=== PATIENT | female | born 1985 | race Caucasian/White ===

== ENCOUNTER 2019-11-26 16:34 | Emergency (ER) | payer OTHER, SELFPAY ==
--- NOTE | ~2019-11-26 | XR_ITS ---
EXAMINATION: XR finger 5th RT min 2V EXAM DATE: 11/26/2019 16:52 INDICATION: Initial encounter following injury, with pain of the right 5th finger. TECHNIQUE: Right 5th finger frontal, lateral and oblique projections obtained and reviewed. There is no prior study for comparison. FINDINGS: There is acute closed posttraumatic nondisplaced transverse fracture through the head of th e right 5th middle phalanx, unusual location for a transverse fracture but no other likely explanatio n for this lucency. This does not appear to extend into the articular surface of the distal interphal angeal joints. This finding has been indicated, marked on the examination for review, clinical correl ation. No other acute findings. IMPRESSION: Right 5th middle phalangeal head fracture. Reviewed, dictated and finalized at location A.
[2019-11-26 16:43] VITALS: BP 139/85; PULSE 83; RESP 20; TEMP 36.7; O2SAT 100
--- NOTE | 2019-11-26 17:00 | ED.UPPEXIN ---
HPI - Extremity Injury (Upper) General Chief Complaint: Extremity Injury, Upper Stated Complaint: INJURED FINGER Source: patient and RN notes reviewed Limitations: no limitations History of Present Illness HPI narrative: The right-handed patient, previously mostly healthy, presents with right finger pain. Patient states her small right finger was on a metal door yesterday. She complains of mild to moderate swelling of the distal tip, with some proximal bruising. No bleeding, deformity; symptoms are mild, worse with movement, better with elevation or rest. Related Data Home Medications Medication Instructions Recorded Confirmed Control Pills 04/10/19 Allergies Allergy/AdvReac Type Severity Reaction Status Date / Time Penicillins Allergy Unknown Swelling Verified 04/10/19 13:21 of Lip/Tongue/Throat Review of Systems Review of Systems: Narrative: General/Constitutional: No weight loss,fever Eyes: N0: Redness,discharge Ears/Nose/Throat: No: Epistaxis,ear discharge Respiratory: Denies: Hemoptysis Gastrointestinal: No Vomiting, Bleeding-rectal Skin: No Lumps, eruption Neurologic: No Focal Weakness,Sz Hematologic: Denies: Petechiae/Purpura Psychiatric: No: Suicida ideationl All Other Systems: Reviewed and Negative PMFSH Past Medical History Medical History (Updated 11/26/19 @ 17:18 by El Meyers MD) MRSA (methicillin resistant Staphylococcus aureus) Surgical History Surgical History (Updated 04/10/19 @ 14:05 by Kelton Weiner) No significant past surgical history Family History Family History (Updated 10/15/15 @ 23:19 by DOCTOR UNKNOWN) Father Hypertension Asthma Family history of diabetes mellitus in first degree relative Family history of heart disease in male family member before age 55 Mother Family history of diabetes mellitus in first degree relative Other Diabetes mellitus Family history of arthritis Family history of cardiovascular disease Social History Social History Smoking end date: 03/19/08 Alcohol intake: current Comments At time of signature, agree with nursing past medical, surgical, social and family history. There is no relevant family history pertinent to the presenting complaint Exam Narrative: Exam Narrative: General Appearance: Well appearing, Well nourished, No distress EYE: PERRLA, EOMI, Conjunctiva clear Mouth/Throat: Normal appearing, Supple Respiratory: Airway patent, No respiratory distress MS-finger: Normal strength (mostly intact, limited flexion/extension by pain), Tenderness (distally with mild decreased ROM), Swelling (distally ), Other (no anterior drawer, no collateral laxity, Skin: Warm, Dry, Normal color Neurological: A&O x3, Speech clear, CN II-XII intact Psychiatric: Normal mood, Normal affect Course Course Emergency Course: Films visualized, interpreted by radiologist, agree, normal see report Vital Signs Vital signs: Vital Signs Temperature 98.1 F 11/26/19 16:43 Pulse Rate 83 11/26/19 16:43 Respiratory Rate 11/26/19 16:43 Blood Pressure 139/85 11/26/19 16:43 Pulse Oximetry 100 11/26/19 16:43 Temperature 98.1 F 11/26/19 16:43 Pulse Rate 83 11/26/19 16:43 Respiratory Rate 11/26/19 16:43 Blood Pressure 139/85 11/26/19 16:43 Pulse Oximetry 100 11/26/19 16:43 Discharge Plan Discharge Clinical Impression: Fracture of finger of right hand Qualifiers: Encounter type: initial encounter Finger: little finger Fracture type: closed Phalanx: middle Fracture alignment: nondisplaced Qualified Code(s): S62.656A - Nondisplaced fracture of middle phalanx of right little finger, initial encounter for closed fracture Patient Disposition: Home, Self-Care Condition: Improved Prescriptions: New tramadol 50 mg tablet 50 mg PO Q6H PRN (Reason: pain) Qty: 15 RF: 1 No Action Control Pills
== END 2019-11-26 17:26 | disposition home or self-care (01) ==
PROVIDERS: Emergency Provider Emergency Medicine; PCP Internal Medicine Gastroenterology
DX: S62.656A Nondisplaced fracture of middle phalanx of right little finger, initial encounter for closed fracture (principal); X58.XXXA Exposure to other specified factors, initial encounter
CPT/HCPCS: 29130; 73140; 99214; G0463

== ENCOUNTER 2020-09-02 15:08 | Emergency (ER) | payer OTHER, SELFPAY ==
[2020-09-02 15:25] VITALS: BP 148/87; PULSE 94; RESP 12; TEMP 36.7; O2SAT 99
[2020-09-02 15:26] VITALS: BP 148/87; PULSE 94; RESP 12; TEMP 36.7; O2SAT 99
--- NOTE | 2020-09-02 15:29 | ED.URI ---
HPI - URI/Sore Throat General Chief Complaint: Upper Respiratory Infection Stated Complaint: SOB/cough/congestion/sweats/swollen glands Time Seen by Provider: 09/02/20 15:29 Source: patient and RN notes reviewed Mode of arrival: ambulatory Limitations: no limitations History of Present Illness HPI Narrative: 35-year-old female presents to the [facility] after being exposed by Covid with symptoms of cough, shortness of breath, fatigue. States that she was possibly exposed to Covid on Sunday, 3 to 4 days ago. States that she has been sleeping all day and wants to be evaluated. Denies fevers. No treatment prior to arrival. Related Data Allergies Allergy/AdvReac Type Severity Reaction Status Date / Time Penicillins Allergy Unknown Swelling Verified 09/02/20 15:24 of Lip/Tongue/Throat Review of Systems Review of Systems: All systems reviewed & are unremarkable except as noted in HPI and below Constitutional: Constitutional: Reports as per HPI, Reports chills, Reports fatigue and Denies fever(s) Eyes: Eyes: Reports no additional eye complaints ENT: Reports as per HPI, Denies dizziness, Reports nasal congestion and Reports sore throat Cardiovascular: Cardiovascular: Reports no additional cardiovascular complaints and Denies chest pain Respiratory: Respiratory: Reports as per HPI, Reports chest congestion, Reports cough and Reports dyspnea Gastrointestinal: Gastrointestinal: Reports no additional gastrointestinal complaints, Denies abdominal pain, Denies nausea and Denies vomiting Musculoskeletal: Musculoskeletal: Reports as per HPI, Denies back pain, Reports myalgias and Denies muscle cramps Integumentary/Breasts: Skin/Breast: Reports system reviewed and no additional complaints, except as docu, Denies erythema and Denies rash Neurologic: Reports as per HPI, Denies vertigo, Denies dizziness, Denies syncope, Reports headache(s), Denies focal weakness and Denies numbness Psychiatric: Psychiatric: Reports no additional psychiatric complaints Allergic/Immunologic: Allergic/Immunologic: Reports no additional allergic/immunologic complaints, Denies lip swelling, Denies throat swelling, Denies tongue swelling and Denies wheezing PMFSH Past Medical History Medical History (Updated 09/02/20 @ 15:40 by Celia Chauhan) MRSA (methicillin resistant Staphylococcus aureus) Surgical History Surgical History No significant past surgical history Family History Family History Father Hypertension Asthma Family history of diabetes mellitus in first degree relative Family history of heart disease in male family member before age 55 Mother Family history of diabetes mellitus in first degree relative Other Diabetes mellitus Family history of arthritis Family history of cardiovascular disease Social History Social History Smoking end date: 03/19/08 Alcohol intake: current Comments At the time of my signature, I reviewed and agree with the nursing past medical, surgical, social, and family history. There is no relevant family history pertinent to the patient complaint. Exam Const: General: healthy appearing, no acute distress and alert Nutritional Appearance: well nourished Orientation/consciousness: patient oriented x3 Limitations: no limitations HENMT: Head: normal to inspection and normocephalic Ears: hearing grossly normal bilaterally, external ears normal and TM's normal bilaterally General nose exam: Normal external nose present, Abnormal mucous membranes and turbinates present boggy and Nasal discharge present clear Face and sinus: normal facial exam and sinuses nontender Mouth: Yes Normal oral and palatal mucosa present, Yes lip normal and Yes tongue normal Throat: posterior oropharynx normal, tonsils normal and uvula midline Eyes: Conjunctivae: conj
[2020-09-03 18:47] LABS: SARS-CoV-2 RNA PCR Negative
== END 2020-09-02 15:48 | disposition home or self-care (01) ==
PROVIDERS: Emergency Provider Nurse Practitioner; PCP Internal Medicine Gastroenterology
DX: J06.9 Acute upper respiratory infection, unspecified (principal); Z20.822 Contact with and (suspected) exposure to COVID-19; Z86.14 Personal history of Methicillin resistant Staphylococcus aureus infection
CPT/HCPCS: 99213; C9803; G0463; U0003; U0005

== ENCOUNTER 2021-01-04 17:19 | Emergency (ER) | payer OTHER, SELFPAY ==
--- NOTE | 2021-01-04 17:24 | ED.URI ---
HPI - URI/Sore Throat General Chief Complaint: Upper Respiratory Infection Stated Complaint: stuffy nose/runny nose/ear pain/peck/sore throat Time Seen by Provider: 01/04/21 17:25 Source: patient and RN notes reviewed History of Present Illness HPI Narrative: Patient is a 35-year-old female who presents the urgent care with complaints of runny nose, congestion, bilateral ear pain, sore and headache. Patient states that her symptoms started on Sunday. She has been using Sudafed and Benadryl for her symptoms. States that her whole family had to be tested last Sunday for Covid and everyone was negative at that time. Patient denies any cough or fever. Patient has not been tested for Covid since her symptoms started. No other acute complaints. No acute distress noted. Patient aware of the plan of care. Some parts of this dictation were generated by voice recognition software and may contain typographical and/or grammatical inaccuracies. Related Data Allergies Allergy/AdvReac Type Severity Reaction Status Date / Time Penicillins Allergy Rash Verified 01/04/21 17:37 Review of Systems Review of Systems: CONSTITUTIONAL: Denies fever, chills, or sweats. EYES: Denies visual changes, redness, or discharge. ENT: Reports of rhinorrhea, nasal congestion, sore throat, bilateral otalgia CARDIOVASCULAR: Denies chest pain, palpitations, or edema. RESPIRATORY: Denies cough or dyspnea. GASTROINTESTINAL: Denies abdominal pain, nausea, vomiting, or diarrhea. GENITOURINARY: Denies dysuria or hematuria. SKIN: Denies rash or itching. MUSCULOSKELETAL: Denies back pain, joint pain, or myalgia. NEUROLOGIC: Reports of headache All other systems reviewed are negative, except as documented in HPI. PMFSH Comments At the time of my signature, I reviewed and agree with the nursing past medical, surgical, social, and family history. There is no relevant family history pertinent to the patient complaint. Exam Narrative: GENERAL: This is a well-nourished, well-developed patient, in no apparent distress. HEAD: normocephalic, atraumatic. EYES: PERRL. Sclera clear/white. Vision is grossly intact. EARS: External ears normal, auditory canals clear and without drainage, mild fluid noted bilateral TMs without otitis, TMs normal without perforation. Hearing grossly intact. NOSE: External nose normal with no obvious nasal discharge, nares without redness, clear to yellow rhinorrhea. THROAT: Mucous membranes moist, posterior pharynx clear. Moderate postnasal drainage NECK: Neck supple, non-tender without lymphadenopathy CARDIOVASCULAR: Regular rate and rhythm without murmurs, gallops, or rubs. RESPIRATORY: Clear to auscultation. Breath sounds equal bilaterally. No wheezes, rales, or rhonchi. SKIN: warm, intact with no suspicious lesions or rash, good texture and turgor. NEURO: awake, alert, and oriented to person, place and time. There were no obvious focal neurologic abnormalities. EXTREMITIES: No clubbing, cyanosis, or edema. Course Vital Signs Vital signs: Vital Signs Temperature 97.1 F L 01/04/21 17:28 Pulse Rate 91 01/04/21 17:28 Respiratory Rate 16 01/04/21 17:28 Blood Pressure 126/91 H 01/04/21 17:28 Pulse Oximetry 100 01/04/21 17:28 Temperature 97.1 F L 01/04/21 17:28 Pulse Rate 91 01/04/21 17:28 Respiratory Rate 16 01/04/21 17:28 Blood Pressure 126/91 H 01/04/21 17:28 Pulse Oximetry 100 01/04/21 17:28 Reviewed-patient is informed that they may have pre-hypertension or hypertension based on a blood pressure reading in the department. I recommend the patient call the primary care provider listed on their discharge instructions or a physician of their choice this week to arrange follow-up for further evaluation of possible pre-hypertension or hypertension. MDM - URI/Sore Throat MDM Narrative Medical decision making narrative: Reviewed lab results with the patient. She is aware that her rapid strep and rapid Covid test were bot
[2021-01-04 17:28] VITALS: BP 126/91; PULSE 91; RESP 16; TEMP 36.2; O2SAT 100
== END 2021-01-04 18:02 | disposition home or self-care (01) ==
PROVIDERS: Emergency Provider Nurse Practitioner Family; PCP Internal Medicine Gastroenterology
DX: J06.9 Acute upper respiratory infection, unspecified (principal); Z20.822 Contact with and (suspected) exposure to COVID-19
CPT/HCPCS: 87081; 87426; 87880; 99213; C9803; G0463

== ENCOUNTER 2021-01-19 17:17 | Emergency (ER) | payer OTHER, SELFPAY ==
[2021-01-19 18:13] VITALS: BP 128/86; PULSE 87; RESP 16; TEMP 36.3; O2SAT 100
[2021-01-19 20:27] VITALS: BP 145/97; PULSE 90; RESP 18; TEMP 36.5; O2SAT 100
[2021-01-19 21:40] LABS: Basophils Percent Auto 0.3 % (0.2-1.2); Eosinophils Absolute Auto 0.2 K/mm3 (0-0.3); Eosinophils Percent Auto 3.3 % (0-4.4); Hematocrit 42.7 % (37.0-47.0); Hemoglobin 14.2 g/dL (12.0-15.0); Immature Granulocyte Absolute 0.02 K/mm3 (0.00-0.031); Immature Granulocyte Percent A 0.3 % (0-0.5); Lymphocytes Absolute Auto 2.46 K/mm3 (0.9-3.2); Lymphocytes Percent Auto 35.4 % (18.3-44.2); Mean Corpuscular HGB Conc 33.3 g/dl (32-36); Mean Corpuscular Hemoglobin 29.5 pg (26-34); Mean Corpuscular Volume 88.8 fl (80-100); Mean Platelet Volume 11.3 fl (7.4-10.4); Monocytes Absolute Auto 0.5 K/mm3 (0.1-0.6); Monocytes Percent Auto 6.8 % (2.6-8.5); Neutrophils Absolute Auto 3.7 K/mm3 (1.3-6.7); Neutrophils Percent Auto 53.9 % (45.5-73.1); Platelet Count Result 191 k/mm3 (150-375); Red Blood Count 4.81 M/mm3 (4.2-5.4); Red Cell Distribution Width 12.8 % (11.5-14.5); White Blood Count 6.9 K/mm3 (4.5-10.0)
[2021-01-19 21:41] VITALS: BP 121/75
[2021-01-19 21:45] VITALS: BP 112/72
[2021-01-19 21:48] LABS: INR 0.9; Prothrombin Time 11.7 Seconds (11.1-14.7)
[2021-01-19 21:49] LABS: Partial Thromboplastin Time 29.7 SECONDS (22.3-36.8)
[2021-01-19 21:51] VITALS: BP 123/94
--- NOTE | 2021-01-19 22:05 | ED.GIBLEED ---
HPI - GI Bleed General Chief complaint: GI Bleed Stated complaint: blood in stools Time Seen by Provider: 01/19/21 20:58 Source: patient Mode of arrival: ambulatory Limitations: no limitations History of Present Illness HPI Narrative: 35-year-old female woke up this morning had a soft stool and also noted some bright red blood with the stool not mixed in. She thought maybe she was starting her period but then this happened a second time prior to arrival. No hematemesis, no melena no hematochezia no previous history of same. No abdominal pain, no rectal pain, no syncope, no palpitations. No history of hemorrhoids per patient patient arrives normal blood pressure 128/86 with a pulse 87. MD complaint: blood on toilet paper Related Data Home Medications Medication Instructions Recorded Confirmed No Home Medications 01/19/21 01/19/21 Allergies Allergy/AdvReac Type Severity Reaction Status Date / Time Penicillins Allergy Rash Verified 01/19/21 20:34 Review of Systems Review of Systems: CONSTITUTIONAL: no fever, no weight loss, no confusion EYES: no vision changes, no eye pain ENT: no rhinorrhea, no sore throat, no difficulty swallowing CARDIOVASCULAR: no chest pain, no leg edema, no palpitations RESPIRATORY: no cough, no shortness of breath, no hemoptysis GASTROINTESTINAL: mild abdominal cramping, no nausea, no vomiting, no diarrhea, BRBPR GENITOURINARY: no flank pain, no dysuria, no hematuria SKIN: no rash, no jaundice MUSCULOSKELETAL: mild lower back pain, no trauma. NEUROLOGIC: No headache, no dizziness, no focal weakness PSYCHIATRIC: No hallucinations, no suicidal ideation Exam Narrative: General: alert, afebrile, answering all questions appropriately Head: normocephalic, atraumatic Eyes: EOMI bilaterally, anicteric, no injection ENT: moist mucous membranes, oropharynx patent, no rhinorrhea Neck: supple, trachea midline, no JVD Chest: equal chest rise bilaterally, no chest wall trauma noted CV: regular rate, no AMY B, calf size equal bilaterally Abd: soft, non-distended, non-tender, no rebound, no gaurding; guaiac negative scant stool. Noted external hemorrhoids nonthrombosed. EXT: no deformity noted, moving all extremities equally Skin: warm, dry, no pallor Neuro: alert, oriented x 3; CN 2-12 grossly intact, no dysarthria Psych: affect appropriate, thought content normal Course Course Emergency Course: Patient was guaiac-negative from below, some external hemorrhoids nonthrombosed. Hemoglobin is normal, no evidence of anemia or tachycardia or lower blood pressure. Coags are normal. Chemistry is normal BUN is not elevated renal function is normal. Unlikely to be significant lower GI bleed needing immediate evaluation. Most likely external or internal hemorrhoids. Spoke with patient regarding results. Patient will return immediately if increased bleeding, syncope, palpitations, inability to tolerate fluids or medications. She will also follow-up with her primary doctor this week for follow-up and possible GI consult. Reevaluation(s) Reevaluation #1: Abdomen soft, no GI bleeding in the ED. Guaiac-negative from below scant stool. Hemoglobin 14.3 afebrile. Tolerating p.o. Date: 01/19/21 Time: 22:24 Vital Signs Vital signs: Vital Signs Temperature 36.3 C L 01/19/21 18:13 Pulse Rate 87 01/19/21 18:13 Respiratory Rate 16 01/19/21 18:13 Blood Pressure 128/86 01/19/21 18:13 Pulse Oximetry 100 01/19/21 18:13 Temperature 36.9 C 01/19/21 22:40 Pulse Rate 81 01/19/21 22:40 Respiratory Rate 16 01/19/21 22:40 Blood Pressure 121/80 01/19/21 22:40 Pulse Oximetry 100 01/19/21 22:40 MDM - GI Bleed MDM Narrative Medical decision making narrative: Patient with 2 episodes of bright red blood per rectum today also started her period today. Patient is guaiac-negative from below palp, vitals are 128/86, pulse of 87. Differential diagnosis: Rectal bleed, lower GI bleed, diverticulitis, AV
[2021-01-19 22:17] LABS: Alanine Aminotransferase 33 U/L (4-35); Albumin Level 4.4 g/dL (3.5-5.1); Alkaline Phosphatase 72 U/L (38-126); Anion Gap 8 mmol/L (8-16); Aspartate Amino Transferase 34 U/L (14-36); Bilirubin,Total 0.4 mg/dL (0.2-1.3); Blood Urea Nitrogen 12 mg/dL (7-17); Calcium 9.7 mg/dL (8.4-10.2); Carbon Dioxide 26 mmol/L (22-30); Chloride 105 mmol/L (98-107); Estimated CRCL calculation 100 ml/min; Estimated Glomerular Filt Rate > 60; Glucose 91 mg/dL (65-110); Potassium 4.3 mmol/L (3.4-5.0); Sodium 139 mmol/L (137-145)
[2021-01-19 22:40] VITALS: BP 121/80; PULSE 81; RESP 16; TEMP 36.9; O2SAT 100
== END 2021-01-19 22:45 | disposition home or self-care (01) ==
PROVIDERS: Family Medicine; Emergency Provider Emergency Medicine; PCP Internal Medicine Gastroenterology
DX: K62.5 Hemorrhage of anus and rectum (principal)
CPT/HCPCS: 36415; 80053; 85025; 85610; 85730; 86850; 86900; 86901; 99283

== ENCOUNTER 2021-07-28 16:22 | Emergency (ER) | payer OTHER, SELFPAY ==
--- NOTE | ~2021-07-28 | CT_ITS ---
EXAMINATION: CT thoracic lumbar wo con DATE: 07/28/2021 20:05 INDICATION: Back injury and tenderness. TECHNIQUE: Computed tomography (CT) of the thoracic and lumbar spine was performed without intravenou s contrast. Automated exposure control and iterative reconstruction technique were employed. The dose -length product was 1800.12 mGy-cm. COMPARISON: None FINDINGS: CT THORACIC SPINE: There is a small sliding hiatal hernia. There are 2 stones in right kidney measuri ng up to 2 mm. There is 4 degrees dextrocurvature of thoracic spine. There is mild chronic anterior w edging of T7 vertebral body. There is mildly decreased disc height from T6-T7 through T8-T9. There ar e endplate osteophytes at multiple levels. There is multilevel mild facet joint osteoarthritis. No ne ural foraminal stenosis or central canal stenosis. CT LUMBAR SPINE: There is 6 degrees levocurvature of lumbar spine. Vertebral body heights and interve rtebral disc heights are normal. There is multilevel mild facet joint osteoarthritis. No neural reed inal stenosis or central canal stenosis. 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 IMPRESSION: 1. No fracture. 2. Mild spondylosis. 3. Small sliding hiatal hernia. Reviewed, dictated and finalized at location A.
--- NOTE | ~2021-07-28 | XR_ITS ---
EXAMINATION: XR hip LT min 3V w AP pelvis DATE: 07/28/2021 19:51 INDICATION: Left hip pain. TECHNIQUE: An anteroposterior pelvis and 3 views of left hip were obtained. COMPARISON: None. FINDINGS: There is widening of pubic symphysis. No fracture. The hip joint spaces are normal. IMPRESSION: 1. Widening of pubic symphysis. Consider pelvis CT if there is clinical concern for fractures of the pelvic ring. Reviewed, dictated and finalized at location A.
--- NOTE | ~2021-07-28 | CT_ITS ---
EXAMINATION: CT cervical spine wo con DATE: 07/28/2021 20:04 INDICATION: Head injury. TECHNIQUE: Computed tomography (CT) of the cervical spine was performed without intravenous contrast. Automated exposure control and iterative reconstruction technique were employed. The dose-length pro duct was 547.62 mGy-cm. COMPARISON: None FINDINGS: There is 8 degrees levocurvature of cervical spine. There is mild kyphosis of cervical spin e. Vertebral body heights and intervertebral disc heights are normal. There is mild facet joint osteo arthritis on the left at C2-C3 and bilaterally at C7-T1. No neural foraminal stenosis or central katia l stenosis. IMPRESSION: 1. No fracture. Reviewed, dictated and finalized at location A. IMPRESSION: 1. No fracture.
--- NOTE | ~2021-07-28 | CT_ITS ---
EXAMINATION: CT pelvis wo con DATE: 07/28/2021 20:47 INDICATION: Left hip pain. Widening of the pubic symphysis. TECHNIQUE: Computed tomography (CT) of the pelvis was performed without intravenous contrast. Automat ed exposure control and iterative reconstruction technique were employed. The dose-length product was 813.06 mGy-cm. COMPARISON: Pelvis and left hip radiographs 07/28/2021 FINDINGS: There is widening of pubic symphysis. No fracture. There is severe osteoarthritis of the sa croiliac joints. There is mild osteoarthritis of the hips characterized by tiny osteophytes. IMPRESSION: 1. No fracture. 2. Widening of the pubic symphysis, likely chronic given the severe osteoarthritis of the sacroiliac joints. 3. Mild osteoarthritis of the hips. Reviewed, dictated and finalized at location A. IMPRESSION: 1. No fracture. 2. Widening of the pubic symphysis, likely chronic given the severe osteoarthri tis of the sacroiliac joints. 3. Mild osteoarthritis of the hips.
--- NOTE | ~2021-07-28 | CT_ITS ---
EXAMINATION: CT brain wo con DATE: 07/28/2021 20:04 INDICATION: Head injury. TECHNIQUE: Computed tomography (CT) of the head was performed without intravenous contrast. The mA wa s adjusted according to patient size. Iterative reconstruction technique was employed. The dose-lengt h product was 529.67 mGy-cm. COMPARISON: None FINDINGS: There is no intracranial hemorrhage, acute infarction, or abnormal intracranial mass lesion . The ventricles are normal in size. The paranasal sinuses are clear. The orbits are normal. The mast oid air cells are normal. IMPRESSION: 1. Normal brain. Reviewed, dictated and finalized at location A. IMPRESSION: 1. Normal brain.
--- NOTE | ~2021-07-28 | XR_ITS ---
EXAMINATION: XR shoulder RT min 2V DATE: 07/28/2021 19:51 INDICATION: Right shoulder pain. Fall. TECHNIQUE: 4 views of right shoulder were obtained. COMPARISON: None. FINDINGS: Bone alignment is normal. No fracture. Joint spaces are well maintained. IMPRESSION: 1. Normal right shoulder. Reviewed, dictated and finalized at location A. IMPRESSION: 1. Normal right shoulder.
[2021-07-28 16:24] VITALS: BP 132/87; PULSE 107; RESP 18; TEMP 36.4; O2SAT 98
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
[2021-07-28] MEDS: KETOROLAC (*BKC) 60 MG/2 ML VIAL IM (19:33)
[2021-07-28 21:07] VITALS: PULSE 74; RESP 18; O2SAT 99
== END 2021-07-28 21:08 | disposition home or self-care (01) ==
PROVIDERS: Emergency Provider Emergency Medicine; PCP Internal Medicine Gastroenterology
DX: M54.50 Low back pain, unspecified (principal); M25.511 Pain in right shoulder; M25.552 Pain in left hip; R51.9 Headache, unspecified; Y04.2XXA Assault by strike against or bumped into by another person, initial encounter; Y92.511 Restaurant or cafe as the place of occurrence of the external cause; Y99.0 Civilian activity done for income or pay
CPT/HCPCS: 70450; 72125; 72128; 72131; 72192; 73030; 73502; 81025; 96372; 99284; J1885

== ENCOUNTER 2021-09-29 14:17 | Emergency (ER) | payer OTHER, SELFPAY ==
[2021-09-29 14:27] VITALS: BP 123/85; PULSE 82; RESP 20; TEMP 37; O2SAT 99
--- NOTE | 2021-09-29 14:45 | ED.NAVMDI ---
HPI - Nausea/Vomiting/Diarrhea General Chief complaint: Nausea/Vomiting/Diarrhea Stated complaint: nausea,vomitting,dizzy,headache Time Seen by Provider: 09/29/21 14:45 Source: patient Mode of arrival: ambulatory Limitations: no limitations History of Present Illness HPI Narrative: 36-year-old female presents with complaint of acid attacks and nausea vomiting diarrhea for the past 2 to 3 days. Afebrile. Also reports intermittent headaches and fatigue. States she has a history of bad GERD. Is currently not taking any medications to treat her symptoms. Reports that acid reflux for started after eating a buffalo tuna. States she had acid in her chest up into her throat that caused her to become nauseous and started vomiting. Denies abdominal pain. States that she tried to go back to work today and still felt fatigued. No URI symptoms. All systems reviewed and negative except as noted above Related Data Allergies Allergy/AdvReac Type Severity Reaction Status Date / Time Penicillins Allergy Unknown Swelling Verified 09/29/21 14:34 of Lip/Tongue/Throat ranitidine Allergy Hives Verified 09/29/21 15:33 Review of Systems Review of Systems: CONSTITUTIONAL: Denies fever, chills, or sweats. Reports fatigue. EYES: Denies visual changes, redness, or discharge. ENT: Denies rhinorrhea, congestion, sore throat, or otalgia. CARDIOVASCULAR: Denies chest pain, palpitations, or edema. RESPIRATORY: Denies cough or dyspnea. GASTROINTESTINAL: Denies abdominal pain. Reports nausea, vomiting, or diarrhea. GENITOURINARY: Denies dysuria or hematuria. SKIN: Denies rash or itching. MUSCULOSKELETAL: Denies back pain, joint pain, or myalgia. NEUROLOGIC: Reports headache. Denies numbness, or weakness. PSYCHIATRIC: Denies anxiety or depression. All other systems reviewed are negative, except as documented in HPI. [facility] Past Medical History Medical History MRSA (methicillin resistant Staphylococcus aureus) Surgical History Surgical History No significant past surgical history Family History Family History Father Hypertension Asthma Family history of diabetes mellitus in first degree relative Family history of heart disease in male family member before age 55 Mother Family history of diabetes mellitus in first degree relative Other Diabetes mellitus Family history of arthritis Family history of cardiovascular disease Social History Social History Smoking end date: 03/19/08 Alcohol intake: current Comments At time of signature, agree with nursing past medical, surgical, social and family history. There is no relevant family history pertinent to the presenting complaint. Exam Narrative: GENERAL: This is a well-nourished, well-developed patient, in no apparent distress. HEAD: normocephalic, atraumatic. EYES: PERRL. Sclera clear/white. Vision is grossly intact. EARS: External ears normal, auditory canals clear and without drainage, TMs normal without perforation. Hearing grossly intact. NOSE: External nose normal with no obvious nasal discharge, nares without redness, no rhinorrhea. THROAT: Mucous membranes moist, posterior pharynx clear. NECK: Neck supple, non-tender without lymphadenopathy, masses or thyromegaly. CARDIOVASCULAR: Regular rate and rhythm without murmurs, gallops, or rubs. RESPIRATORY: Clear to auscultation. Breath sounds equal bilaterally. No wheezes, rales, or rhonchi. GASTROINTESTINAL: Abdomen soft, non-tender, nondistended. Bowel sounds are active. No hepato-splenomegaly, or palpable masses. No guarding. SKIN: warm, Dry, intact with no suspicious lesions or rash, good texture and turgor. NEURO: awake, alert, and oriented to person, place and time. There were no obvious focal neurologic abn
[2021-09-29] MEDS: KETOROLAC (*BKC) 60 MG/2 ML VIAL IM (15:11)
[2021-09-29] MEDS: ONDANSETRON HCL ODT 4 MG TABLET SUBLINGUAL (15:13)
== END 2021-09-29 15:44 | disposition home or self-care (01) ==
PROVIDERS: Emergency Provider Nurse Practitioner Family; PCP Internal Medicine Gastroenterology
DX: B34.9 Viral infection, unspecified (principal); Z20.822 Contact with and (suspected) exposure to COVID-19
CPT/HCPCS: 87426; 96372; 99213; A9270; C9803; G0463; J1885

== ENCOUNTER 2022-06-21 09:40 | Emergency (ER) | payer OTHER, SELFPAY ==
[2022-06-21 09:45] VITALS: BP 143/59; PULSE 90; RESP 16; TEMP 36.7; O2SAT 99
--- NOTE | 2022-06-21 10:01 | ED.LOWEXIN ---
HPI - Extremity Injury (Lower) General Chief Complaint: Extremity Injury, Lower Stated Complaint: left foot pain Time Seen by Provider: 06/21/22 09:55 Source: patient and RN notes reviewed History of Present Illness HPI Narrative: 37-year-old female presents to urgent care with complaints of left ankle and foot pain x 1 month. Patient reports the pain usually starts in her left lateral ankle and it radiates down her lateral foot, upper around her 2nd and 3rd toes and up her dorsal foot and anterior ankle. Patient reports worsening pain when she is working standing on her feet. Patient states the pain is relieved with rest. Patient states pain gets bad she will take a Tylenol and/or ibuprofen. Denies any injury or trauma. Denies any neuropathy. Denies any fevers, chills or calf pain. Some parts of this dictation were generated by voice recognition software and may contain typographical and/or grammatical inaccuracies. Related Data Allergies Allergy/AdvReac Type Severity Reaction Status Date / Time Penicillins Allergy Unknown Swelling Verified 06/21/22 09:50 of Lip/Tongue/Throat ranitidine Allergy Hives Verified 06/21/22 09:50 Review of Systems Review of Systems: Pertinent positives and pertinent negatives per HPI. [facility] Past Medical History Medical History MRSA (methicillin resistant Staphylococcus aureus) Surgical History Surgical History No significant past surgical history Family History Family History Father Hypertension Asthma Family history of diabetes mellitus in first degree relative Family history of heart disease in male family member before age 55 Mother Family history of diabetes mellitus in first degree relative Other Diabetes mellitus Family history of arthritis Family history of cardiovascular disease Social History Social History Smoking end date: 03/19/08 Alcohol intake: current Comments At the time of my signature, I reviewed and agree with the nursing past medical, surgical, social, and family history. There is no relevant family history pertinent to the patient complaint. Exam Narrative: GENERAL: This is a well-nourished, well-developed patient, in no apparent distress. HEAD: normocephalic, atraumatic. EYES: Sclera clear/white. Vision is grossly intact. EARS: External ears normal, auditory canals clear and without drainage. Hearing grossly intact. NOSE: External nose normal with no obvious nasal discharge, nares without redness, no rhinorrhea. THROAT: Mucous membranes moist, posterior pharynx clear. NECK: Neck supple, non-tender without lymphadenopathy, masses or thyromegaly. CARDIOVASCULAR: Regular rate RESPIRATORY: No respiratory distress SKIN: warm, intact with no suspicious lesions or rash, good texture and turgor. no puncture wounds. NEURO: awake, alert, and oriented to person, place and time. There were no obvious focal neurologic abnormalities. EXTREMITIES: No clubbing, cyanosis, or edema. No joint tenderness, effusion, or edema noted. Pes planus noted to foot. Course Course Level of Care: Express Care Visit Vital Signs Vital signs: Vital Signs Temperature 98.1 F 06/21/22 09:45 Pulse Rate 90 06/21/22 09:45 Respiratory Rate 16 06/21/22 09:45 Blood Pressure 143/59 H 06/21/22 09:45 Pulse Oximetry 99 06/21/22 09:45 Oxygen Delivery Room Air 06/21/22 09:45 Temperature 98.1 F 06/21/22 09:45 Pulse Rate 90 06/21/22 09:45 Respiratory Rate 16 06/21/22 09:45 Blood Pressure 143/59 H 06/21/22 09:45 Pulse Oximetry 99 06/21/22 09:45 Oxygen Delivery Room Air 06/21/22 09:45 reviewed. MDM - Extremity Injury (Lower) MDM Narrative Medical decision making narrative: Use the RICE method at home. May take ib
== END 2022-06-21 10:07 | disposition home or self-care (01) ==
PROVIDERS: Emergency Provider Nurse Practitioner Family; PCP Internal Medicine Gastroenterology
DX: M79.672 Pain in left foot (principal); Z87.891 Personal history of nicotine dependence; Z86.14 Personal history of Methicillin resistant Staphylococcus aureus infection
CPT/HCPCS: 99213; G0463

== ENCOUNTER 2023-02-02 13:41 | Emergency (ER) | payer OTHER, SELFPAY ==
[2023-02-02 13:45] VITALS: BP 126/74; PULSE 91; RESP 16; TEMP 36.6; O2SAT 97
--- NOTE | 2023-02-02 14:04 | ED.URI ---
HPI - URI/Sore Throat General Chief Complaint: Upper Respiratory Infection Stated Complaint: throat swollen and tender Time Seen by Provider: 02/02/23 13:50 Source: patient Mode of arrival: ambulatory Limitations: no limitations History of Present Illness HPI Narrative: Blanche is a 37-year-old female patient presenting to clinic today with complaints of sore throat and cough x2 days. Reports cough is productive and she is bringing up some green phlegm. No known fever or chills. Her son tested positive for strep on Sunday. MD elicited complaint: sore throat and nasal congestion Related Data Home Medications Medication Instructions Recorded Confirmed No Home Medications 02/02/23 02/02/23 Allergies Allergy/AdvReac Type Severity Reaction Status Date / Time Penicillins Allergy Unknown Swelling Verified 02/02/23 13:55 of Lip/Tongue/Throat ranitidine Allergy Hives Verified 02/02/23 13:55 Review of Systems Review of Systems: Pertinent positives per HPI. Patient denies any fever, chills, rash, headache, visual changes, dizziness, cough, shortness of breath, chest pain, palpitations, nausea, vomiting, diarrhea, constipation, abdominal pain, or any urinary issues. [facility] Past Medical History Medical History MRSA (methicillin resistant Staphylococcus aureus) Surgical History Surgical History No significant past surgical history Family History Family History Father Hypertension Asthma Family history of diabetes mellitus in first degree relative Family history of heart disease in male family member before age 55 Mother Family history of diabetes mellitus in first degree relative Other Diabetes mellitus Family history of arthritis Family history of cardiovascular disease Social History Social History Smoking end date: 03/19/08 Alcohol intake: current Comments At the time of my signature, I reviewed and agree with the nursing past medical, surgical, social, and family history. There is no relevant family history pertinent to the patient complaint. Exam Narrative: General: Well-developed, well nourished, in no apparent distress Head: Normocephalic, atraumatic Eyes: Pupils equally round and reactive to light bilaterally, EOM intact, sclera and conjunctive clear, no discharge, lids normal Ears: TMs intact and clear, ear canals clear, no drainage, grossly hearing normal. Nose: Nares patent, clear nasal discharge, mild inflammation, no sinus tenderness. Mouth: Oral pharynx red without lesions or masses, good dentition, MMM. Neck: Supple, trachea midline, no enlargement of anterior or posterior cervical nodes, no thyroid masses or goiter palpable. Cardio: Regular rate and rhythm, s1 and s2 normal, no murmur appreciated. Resp: Clear to auscultation bilaterally, no rhonchi, rales, wheezing or rubs Course Course Emergency Course: Portions of this record may have been created with voice recognition software. Level of Care: Express Care Visit Vital Signs Vital signs: Vital Signs Temperature 36.6 C 02/02/23 13:45 Pulse Rate 91 02/02/23 13:45 Respiratory Rate 16 02/02/23 13:45 Blood Pressure 126/74 02/02/23 13:45 Pulse Oximetry 97 02/02/23 13:45 Oxygen Delivery Room Air 02/02/23 13:45 Temperature 36.6 C 02/02/23 13:45 Pulse Rate 91 02/02/23 13:45 Respiratory Rate 16 02/02/23 13:45 Blood Pressure 126/74 02/02/23 13:45 Pulse Oximetry 97 02/02/23 13:45 Oxygen Delivery Room Air 02/02/23 13:48 Vital signs reviewed MDM - URI/Sore Throat MDM Narrative Medical decision making narrative: At the time of visit patient is resting comfortably on exam table. Patient appears to be nontoxic. Strep screen was o
== END 2023-02-02 14:08 | disposition home or self-care (01) ==
PROVIDERS: Emergency Provider Nurse Practitioner Family; PCP Internal Medicine Gastroenterology
DX: J06.9 Acute upper respiratory infection, unspecified (principal); J02.9 Acute pharyngitis, unspecified; Z87.891 Personal history of nicotine dependence; Z86.14 Personal history of Methicillin resistant Staphylococcus aureus infection
CPT/HCPCS: 87081; 87880; 99213; G0463